=== PATIENT | female | born 1945 | race Caucasian/White ===

== ENCOUNTER → 2019-05-23 | Day surgery (SDC) | payer OTHER, BC ==
--- NOTE | 2019-05-24 13:33 | PATH ---
Surgical Pathology Report Patient Name: [facility]. Rec. #: [id number] /Age/Gender: 1945 (Age: 74) / F Account: [id number] Location: [facility] Taken: 05/23/2019 Received: 05/23/2019 Reported: 05/24/2019 Physicians: Jennifer Coulter M.D. Specimen(s) Received RIGHT BREAST SPECIMEN DENSITY Clinical History Nonpalpable lesion Mammographic findings: Suspicious Final Diagnosis BREAST, RIGHT, DENSITY, STEREOTACTIC CORE BIOPSY: BENIGN BREAST PARENCHYMA WITH STROMAL FIBROSIS, MICROCYSTS, ADENOSIS, APOCRINE METAPLASIA, FOCAL COLUMNAR CELL CHANGES, AND ASSOCIATED MICROCALCIFICATIONS. Electronically Signed Dasha Cortez M.D. Gross Description Received in formalin labeled "right breast with density," is a 4.0 x 3.5 x 0.3 cm aggregate of multiple nesbitt-yellow, irregular to cylindrical portions of fibroadipose tissue. The formalin is filtered and the specimen is entirely submitted in 2 cassettes. Time to formalin fixation: 8 minutes Total formalin fixation time: Approximately 6 hours. /05/23/2019 saudi05/23/2019
== END | disposition home or self-care (01) ==
LOC: FMAMMOTONE 10:50
PROVIDERS: ATTEND Internal Medicine
PROC: 0HBT3ZX Excision of Right Breast, Percutaneous Approach, Diagnostic (ICD-10-PCS; principal; 2019-05-23)
DX: N60.11 Diffuse cystic mastopathy of right breast (principal); N60.21 Fibroadenosis of right breast; N60.31 Fibrosclerosis of right breast; N64.89 Other specified disorders of breast; R92.8 Other abnormal and inconclusive findings on diagnostic imaging of breast
CPT/HCPCS: 19081; 76098-TC-FY; 87899; 88305-TC; A4648